=== PATIENT | male | born 1980 | race Caucasian/White ===

== ENCOUNTER 2020-07-12 05:36 | Outpatient (CLI) | payer BC ==
[~2020-07-12] VITALS: Ht 180.3 cm; Wt 79.5 kg
[2020-07-12] MEDS ORDERED: BUDE10.2 IH (12:47)
[2020-07-12] MEDS ORDERED: MONT10TA32 PO (12:47)
[2020-07-12] MEDS ORDERED: FEXO180T84 PO (12:47)
== END 2020-07-12 12:50 | disposition home or self-care (01) ==
LOC: PREOP 05:36
PROVIDERS: ATTEND Otolaryngology Otolaryngology/Facial Plastic Surgery
DX: Z01.818 Encounter for other preprocedural examination (principal)

== ENCOUNTER 2021-07-10 05:29 | Outpatient (CLI) | payer BC ==
[~2021-07-10] VITALS: Ht 180.3 cm; Wt 84.1 kg
[~2021-07-10 05:29] MED LIST: BUDE10.2 IH; FEXO180T84 PO; MONT-40 PO
[2021-07-10] MEDS ORDERED: FEXO180T84 PO (14:07)
== END 2021-07-10 14:16 | disposition home or self-care (01) ==
LOC: PREOP 05:29
PROVIDERS: ATTEND Otolaryngology Otolaryngology/Facial Plastic Surgery
DX: Z01.818 Encounter for other preprocedural examination (principal)

== ENCOUNTER 2021-07-17 05:55 | Day surgery (SDC) | payer BC ==
[2021-07-17] VITALS (11 sets, daily range): BP systolic 123–135; BP diastolic 89–97
[~2021-07-17] VITALS: Ht 180 cm; Wt 84.1 kg
[2021-07-17 06:51] LABS: POTASSIUM 3.7 MMOL/L (3.6-5.0)
[2021-07-17 06:52] LABS: CALCIUM 9.5 MG/DL (8.5-10.1)
[2021-07-17 06:56] LABS: CREATININE SERUM 0.91 MG/DL (0.60-1.30)
[2021-07-17 06:58] LABS: BASOPHILS # (AUTO) 0.1 10^3/uL (0.0-0.1); BASOPHILS % (AUTO) 1 % (0-10); EOSINOPHILS # (AUTO) 0.6 10^3/uL (0.0-0.3); EOSINOPHILS % (AUTO) 7 % (0-10); HEMATOCRIT 50 % (40-54); HEMOGLOBIN 16.5 g/dL (13.3-17.7); LYMPHOCYTES # (AUTO) 2.1 10^3/uL (1.0-4.0); LYMPHOCYTES % (AUTO) 27 % (12-44); MEAN CORPUSCULAR HEMOGLOBIN 30 pg (25-34); MEAN CORPUSCULAR HGB CONC 33 g/dL (32-36); MEAN CORPUSCULAR VOLUME 90 fL (80-99); MEAN PLATELET VOLUME 11.4 fL (9.0-12.2); MONOCYTES % (AUTO) 14 % (0-12); NEUTROPHILS # (AUTO) 3.8 10^3/uL (1.8-7.8); NEUTROPHILS % (AUTO) 50 % (42-75); PLATELET COUNT 281 10^3/uL (130-400); WHITE BLOOD COUNT 7.6 10^3/uL (4.3-11.0)
[2021-07-17] MEDS ORDERED: HYDROCORTISONE 100 MG/2 ML (Solu-CORTEF) VIAL IV ONE (07:00)
[2021-07-17] MEDS ORDERED: AMPICILLIN/SULBACTAM INJECTION 1.5 GM in NS (IVPB) 100 ML IV ONE (07:00)
--- NOTE | 2021-07-17 07:07 | Progress Note-Pre Operative ---
Pre-Operative Progress Note H&P Reviewed The H&P was reviewed, patient examined and no changes noted. Date Seen by Provider: July 17, 2021 Time Seen by Provider: 07:00 Date H&P Reviewed: July 17, 2021 Time H&P Reviewed: 07:00 Pre-Operative Diagnosis: Bilt Chronic Sinusitis, Deviated Nasal Septum, Bilat Hyper of Inf Turbs MOHIT MICHAELS MD July 17, 2021 07:07
[2021-07-17] MEDS ORDERED: BSS 15 ML ONE (07:09)
[2021-07-17] MEDS ORDERED: PHENYLEPHRINE 0.5% NASAL SPR (NEO-SYNEPHRINE) REG ONE (07:09)
[2021-07-17] MEDS ORDERED: LIDOCAINE/EPI 2% 1:100,00 (XYLOCAINE) 20 ML VIAL ONE (07:09)
[2021-07-17] MEDS ORDERED: COCAINE HCL 4% 2 ML SYR ONE (07:09)
--- NOTE | 2021-07-17 07:12 | Progress Note-Post Operative ---
Post-Operative Progess Note Surgeon (s)/Senior Paralegal (s) Surgeon MOHIT MICHAELS MD Senior Paralegal n/a Pre-Operative Diagnosis Bilt Chronic Sinusitis, Deviated Nasal Septum, Bilat Hyper of Inf Turbs Post-Operative Diagnosis same Post-Op Procedure Note Date of Procedure: July 17, 2021 Name of Procedure Performed: Bilat ESS, Nasal Septoplasty, Bialt Red of Inf Turbs Description & Findings Description and Findings: n/a Anesthesia Type get Estimated Blood Loss minimal Packing none. Specimen(s) collected/removed bilat chronic Sinus disease MOHIT MICHAELS MD July 17, 2021 07:12
[2021-07-17] MEDS ORDERED: HYDROCORTISONE 100 MG/2 ML (Solu-CORTEF) VIAL ONE (07:14)
[2021-07-17] MEDS ORDERED: AMPICILL/SULB 1.5 GM VIAL (UNASYN) ONE (07:14)
[2021-07-17] MEDS ORDERED: PROMETHAZINE INJ 25 MG/ML (PHENERGAN) AMP IVP PRN (07:15)
[2021-07-17] MEDS ORDERED: NS (IVPB) 50 ML ONE (07:15)
[2021-07-17] MEDS ORDERED: predniSONE 20 MG TAB PO ONE (07:15)
[2021-07-17] MEDS ORDERED: D5 1/2 NS W/KCL 20 MEQ/L 1,000 ML IV SCH (07:15)
[2021-07-17] MEDS ORDERED: HYDROcodone/APAP 5 MG/325 MG (LORTAB) TAB PO PRN (07:15)
[2021-07-17] MEDS: LACTATED RINGERS 1,000 ML IV PRN ×2 (07:22→08:47)
[2021-07-17] MEDS ORDERED: AMOX-355 PO (09:21)
[2021-07-17] MEDS ORDERED: PRD20T PO (09:21)
[2021-07-17] MEDS ORDERED: ACHD5005 PO (09:21)
[2021-07-17] MEDS ORDERED: HYDROmorphone 2 MG/ML VIAL (DILAUDID) IV ONE (09:30)
[2021-07-17] MEDS ORDERED: ONDANSETRON 4 MG/2 ML (SDV) Z0FRAN IVP PRN (09:30)
[2021-07-17] MEDS ORDERED: predniSONE 20 MG TAB ONE (10:16)
--- NOTE | 2021-07-17 10:39 | Anesthesia-General Post-Op ---
General Patient Condition Mental Status/LOC: Same as Preop Cardiovascular: Satisfactory Nausea/Vomiting: Absent Respiratory: Satisfactory Pain: Controlled Complications: Absent Post Op Complications Complications None Follow Up Care/Instructions Patient Instructions None needed. Anesthesia/Patient Condition Patient Condition Patient is doing well, no complaints, stable vital signs, no apparent adverse anesthesia problems. No complications reported per nursing. [place] [facility] [place] CAMILA WEINER CRNA July 17, 2021 10:39
== END 2021-07-17 11:20 | disposition home or self-care (01) ==
LOC: SDC 05:55
PROVIDERS: ATTEND Otolaryngology Otolaryngology/Facial Plastic Surgery
DX: J32.9 Chronic sinusitis, unspecified (principal); J34.2 Deviated nasal septum; J34.3 Hypertrophy of nasal turbinates; J30.9 Allergic rhinitis, unspecified; J98.8 Other specified respiratory disorders; Z79.899 Other long term (current) drug therapy
CPT/HCPCS: 36415; 80048; 85025; 87081